=== PATIENT | female | born 1950 | race Caucasian/White ===

== ENCOUNTER → 2018-08-22 | Outpatient (CLI) | payer MEDICARE, OTHER ==
[~2018-08-22] MED LIST: ALLEGRA; ALLEGRA-D 12 H1 EAC1 PO; FLONASE; FLONASE 0.05%50 MCG NASAL; KEFLEX500 MG PO; PATADAY2.5 ML OP; REQUIP; REQUIP1 MG PO; [UNRECOGNIZED DRUG - OTHER]
== END ==
LOC: M.MRI 08-12 13:34
DX: S83.241A Other tear of medial meniscus, current injury, right knee, initial encounter (principal); M17.0 Bilateral primary osteoarthritis of knee; M25.462 Effusion, left knee; M25.461 Effusion, right knee; X58.XXXA Exposure to other specified factors, initial encounter; Y93.89 Activity, other specified; Y92.89 Other specified places as the place of occurrence of the external cause; Y99.8 Other external cause status; G89.29 Other chronic pain

== ENCOUNTER → 2019-03-20 | Outpatient (CLI) | payer MEDICARE, OTHER | LOC: M.RAD 11:03 | DX: Z12.31 Encounter for screening mammogram for malignant neoplasm of breast (principal) ==

== ENCOUNTER → 2019-04-17 | Outpatient (CLI) | payer MEDICARE, OTHER | LOC: M.RAD 14:30 | DX: M85.88 Other specified disorders of bone density and structure, other site (principal) ==

== ENCOUNTER → 2019-08-20 | Outpatient (CLI) | payer MEDICARE, OTHER ==
[~2019-08-20] MED LIST changes: +B COMPLEX1 EACH PO; +CALCIUM GUMMIES PO; +CHROMIUM PICO400 MCG PO; +COLLAGEN PO; +CVS LUTEIN 401 EACH PO; +DAILY MULTIPLE1 EACH PO; +FIBER WELL PO; +FISH OIL 1,4001 EACH PO; +FLONASE 0.05%50 MCG NARES; +HYALURONIC ACID PO; +KEFLEX500 M1 PO; +MAGNESIUM CITR125 MG PO; +METHYLSULFONYLMETHANE PO; +OMEGA 3 1,0001 EACH PO; +OMEGA PO; +POTASSIUM99 M1 PO; +PROBIOTIC1 EAC7 PO; +STRONTIUM PO; +TRIAMTERENE/HCTZ PO; +TURMERIC 500 M1 EACH PO; +VITAMIN D22000 UNIT PO; +VITAMIN E400 UNI2 PO; +VITAMINC500 PO; +[UNRECOGNIZED DRUG - OTHER] PO
== END ==
LOC: M.MRI 16:57
DX: S83.241A Other tear of medial meniscus, current injury, right knee, initial encounter (principal); S83.411A Sprain of medial collateral ligament of right knee, initial encounter; M25.861 Other specified joint disorders, right knee; M25.461 Effusion, right knee; X58.XXXA Exposure to other specified factors, initial encounter; Y93.89 Activity, other specified; Y92.89 Other specified places as the place of occurrence of the external cause; Y99.8 Other external cause status

== ENCOUNTER 2019-09-16 05:35 | Inpatient (IN) | payer MEDICARE, OTHER ==
[2019-09-04 09:14] LABS: HEMATOCRIT 41.7 % (37.0-47.0); HEMOGLOBIN 14.1 gm/dL (12.0-15.0); MCH 31.5 pg (26.0-34.0); MCHC 33.9 g/dL (28.0-37.0); MPV 8.7 fl. (7.2-11.1); RBC 4.48 mil/uL (4.20-5.00); RDW-CV 13.9 % (10.5-14.5); WBC 8.1 thou/uL (4.0-11.0)
[2019-09-04 09:25] LABS: URINE BILIRUBIN NEGATIVE (Negative); URINE BLOOD NEGATIVE (Negative); URINE CLARITY CLEAR; URINE COLOR YELLOW; URINE GLUCOSE-RANDOM NEGATIVE (Negative); URINE KETONES NEGATIVE (Negative); URINE LEUKOCYTES-REFLEX NEGATIVE (Negative); URINE NITRITE-REFLEX NEGATIVE (Negative); URINE PROTEIN NEGATIVE (Negative); URINE SPECIFIC GRAVITY 1.015 (1.005-1.030); URINE UROBILINOGEN 0.2 E.U./dl (0.2-1.0)
[2019-09-04 09:31] LABS: ALBUMIN 3.6 g/dL (3.4-5.0); CALCIUM 9.2 mg/dL (8.5-10.1); CREATININE 0.9 mg/dL (0.6-1.3); POTASSIUM 4.8 mmol/L (3.5-5.1); TOTAL BILIRUBIN 0.5 mg/dL (<0.1-1.0); TOTAL PROTEIN 6.7 g/dL (6.4-8.2)
--- NOTE | 2019-09-10 13:44 | EKG ---
[place] [address] ELECTROCARDIOGRAM REPORT Name: KARINA GILLIS Room: PRE IN [facility]#: [id number] Admission: Attend Phys: Hardeep Bahena Discharge: Date of : 48 Date of Service: 09/04/1943 Report #: [id number] THIS REPORT FOR: cc: Jeny Muhammad Linda J. DO Biggs, F. Douglas MD [facility] ~ THIS REPORT FOR: //name// [facility] Test Date: 2019-09-04 Test Time: 09:42:30 Pat Name: KARINA GILLIS Department: Room: Gender: F Donkey Doctor: : 1950 Requested By: Neo Pena Order Number: [id number] Noel MD: Derrek Joyner Measurements Intervals [place] Rate: 59 P: 71 AL: 155 QRS: 55 QRSD: 98 T: 60 QT: 452 QTc: 448 Interpretive Statements Sinus rhythm RSR' in V1 or V2, right VCD or RVH No previous ECG available for comparison Electronically Signed On 09-04-2019 14:33:06 [employer] by Derrek Joyner [email or web address] <ELECTRONICALLY SIGNED> By: Dionna Joyner MD, [facility] 09/04/19 1433 [id number] [id number] Dionna Joyner MD, [facility] /EPI
[~2019-09-16] VITALS: Ht 162.6 cm; Wt 59.0 kg
[~2019-09-16 05:35] MED LIST changes: +MELOXICAM7.5 MG PO; +REQUIP 1 MG TABL1 M1 PO
[2019-09-16 11:00] VITALS: BP 137/78
[2019-09-16 17:12] VITALS: BP 138/65
--- NOTE | 2019-09-16 17:25 | NUR ---
PT REMAINED ALERT AND ORIENTED. PT RESTING IN BED. PAIN MEDS GIVEN ORDERED. PT ORIENTED TO ROOM AND INSTRUCTED TO USE CALL LIGHT WHEN NEEDING ASSISTANCE. FALL RISK PRECAUTIONS IN PLACE. HOURLY ROUNDING COMPLETED. WILL CONTINUE TO MONITOR.
[2019-09-16 19:57] VITALS: BP 154/80
[2019-09-17] VITALS (9 sets, daily range): BP systolic 120–157; BP diastolic 72–82
--- NOTE | 2019-09-17 04:32 | NUR ---
PATIENT UP WITH WALKER WELL. USING POLAR PACK, SCD AND HEMOVAC STILL. REPORTS PAIN 6/10 ESPECIALLY AFTER AMBULATING. WBAT. SUNDAY IS POD#1. PLAN IS TO WORK WITH THERAPY AND MANAGEMENT OF PAIN. WILL CONTINUE TO FOLLOW PLAN OF CARE. ON - PA
[2019-09-17 04:40] LABS: HEMATOCRIT 36.6 % (37.0-47.0); HEMOGLOBIN 12.6 gm/dL (12.0-15.0)
[2019-09-17] MEDS ORDERED: PERCOCET 5-3251 EACH PO (09:47)
[2019-09-17] MEDS ORDERED: XARELTO10 M1 PO (09:48)
--- NOTE | 2019-09-17 11:00 | NUR ---
CALLED IN PRESCRIPTION FOR XARELTO, RYAN, FOR XARELTO TO [facility]. NURSING TO CALL BACK FOR COPAY AMOUNT.
--- NOTE | 2019-09-17 11:48 | NUR ---
cm completed initial assessment to discuss d/c planning. pt a&ox4. pt sitting up in chair and talkative. pt present. spouse states pt has "the best support." pt lives at home w/spouse. pt is usually active, independent w/cares and drives. pt would like alanna Decker to fax order.
--- NOTE | 2019-09-17 13:29 | NUR ---
RECIEVED O.T. EVAL AND TX ORDERS. WILL DEFER TO P.T. AT THIS TIME. PLEASE ORDER FURTHER O.T. SERVICES IF NEEDED.
--- NOTE | 2019-09-17 15:31 | NUR ---
FAXED REFERRAL TO [facility] [phone]. CONFIRMED WITH [facility] THAT THEY RECEIVED AND REVIEWING. DCP TO FOLLOW.
--- NOTE | 2019-09-17 16:03 | NUR ---
PT GIVEN DISCHARGE INFORMATION, CARE NOTES, AND PRESCRIPTIONS. IV REMOVED. PT LEFT WITH POLAR PACK AND CPM. FALL RISK PRECAUTIONS IN PLACE. HOURLY ROUNDING COMPLETED. PT LEFT VIA WHEELCHAIR WITH NURSING STAFF TO HOME WITH HOME HEALTH.
--- NOTE | 2019-09-17 16:17 | OP ---
[facility] [address] [place] [address] OPERATIVE REPORT Name: KARINA GILLIS Room: [address] M.R.#: [id number] Admission: 09/16/19 Attend Phys: Eulalio Coy Discharge: 09/17/19 Date of : 48 Report #: [id number] THIS REPORT FOR: //name// cc: Jeny Muhammad Linda J. DO THIS REPORT FOR: //name// CC: Jeny Bahena DATE OF SERVICE: 09/16/2019 PREOPERATIVE DIAGNOSIS: Right knee osteoarthritis. POSTOPERATIVE DIAGNOSIS: Right knee osteoarthritis. PROCEDURE: Right total knee arthroplasty. SURGEON: Neo Pena II, DO. SLEEP SCIENTIST: MANUELA Higgins. ANESTHESIA: General endotracheal. ESTIMATED BLOOD LOSS: 50 mL. ANTIBIOTICS: Ancef preoperatively. DRAINS: Hemovac. COMPLICATIONS: None. CONDITION OF THE PATIENT: Stable to recovery room. IMPLANTS: Listed in operative record and progress note. BRIEF HISTORY: The patient was seen in the preoperative area. Preoperative H and P was performed. Site was marked. Questions were answered. Risks and benefits were discussed with the patient in detail about surgery. The patient wished to proceed assuming all risks. DESCRIPTION OF PROCEDURE: The patient was taken to the operative suite and placed supine on the operating table and given appropriate anesthesia. A well-padded tourniquet was applied to upper thigh, which was inflated to 300 mmHg after gravity exsanguination. The operative knee was sterilely prepped and [facility] [address] [place] [address] OPERATIVE REPORT Name: KARINA GILLIS Room: [address] R.#: [id number] Admission: 09/16/19 Attend Phys: Eulalio Coy Discharge: 09/17/19 Date of : 48 Report #: [id number] draped. Surgery began by midline incision. This was carried down to the subcutaneous tissues. A medial parapatellar arthrotomy was performed and carried down to bone. Patella was then everted and excess soft tissues were removed from around the femur. Femoral cutting block was then applied, checked with a drop mayra for rotational alignment, pinned in appropriate position, and appropriate cuts were made. A 4-in-1 cutting block was then applied, checked for rotational alignment, pinned in appropriate position, and appropriate cuts were made. Tibia was exposed. Excess meniscus was removed. Retractor was placed on collateral ligaments. The tibial cutting block was then applied, pinned in appropriate position, checked with drop mayra for rotational alignment and slope, and appropriate cut was made. Tibial bone was removed. Tibial base plate was then applied, checked for rotational alignment with a drop mayra, and pinned in appropriate position. Femur was then applied and box cut was reamed. This was then trialed with appropriate spacer, which showed excellent fit and fill and excellent stability of knee throughout all range of motion. The patella was then reamed in appropriate fashion and sized to appropriate size. Three peg holes were drilled. It was then trialed and showed excellent flexion and extension and excellent tracking of the patella within the groove. These trials were removed. The tibia was punched in appropriate fashion. Bone ends were cleansed with Pulsavac irrigation and cement was mixed and applied to final implants. These were then malleted into the position and held the knee in extension and compressed to allow cement to cure. After it cured, excess was removed using a Butler and osteotome. Wound was then copiously irrigated and the final spacer was then malleted into position. Tourniquet was deflated. Hemostasis was obtained with electrocautery. Pain cocktail was injected. PRP gel sprayed throughout the internal aspects of the knee. Medium Hemovac drain was applied. Capsule was closed with #2 FiberWire and #1 Vicryl in [id number] fashion. Skin was closed with 2-0 Vicryl and running 3-0 Monocryl. Dermabond and sterile dressing applied. Abhishek wrap and PolarCare applied. The patient transported to recovery room in stable condition. Counts were correct throughout the procedure. <ELECTRONICALLY SIGNED> By: Neo Pena II, DO 09/17/191616 19 Neo Pena II, DO /nt
--- NOTE | 2019-09-18 08:51 | NUR ---
I have reviewed the documentation by STEVEN CHRISTIANSEN from to 09/17/19 and I concur with it. DEE DEE KNAPP
--- NOTE | 2019-09-18 09:42 | NUR ---
CONFIRMED WITH [facility] AT [facility] THAT THEY HAVE ACCEPTED PATIENT AND WILL CONTACT PATIENT TODAY TO SCHEDULE THERAPY. [phone]
== END 2019-09-17 16:04 | disposition home health service (06) | DRG 470 ==
LOC: M.PRE 05:35 → M.ORTHSURG 09:59 → M.TBA 09:59 → M.PRE 10:46 → M.ORTHSURG 16:06
PROVIDERS: Orthopaedic Surgery; ADMIT Internal Medicine
PROC: 0SRC0J9 Replacement of Right Knee Joint with Synthetic Substitute, Cemented, Open Approach (ICD-10-PCS; principal; 2019-09-16)
PROC: 3E0T3BZ Introduction of Anesthetic Agent into Peripheral Nerves and Plexi, Percutaneous Approach (ICD-10-PCS; 2019-09-16)
DX: M17.11 Unilateral primary osteoarthritis, right knee (principal); I10 Essential (primary) hypertension; E78.5 Hyperlipidemia, unspecified; G25.81 Restless legs syndrome; K21.9 Gastro-esophageal reflux disease without esophagitis; Z96.611 Presence of right artificial shoulder joint; Z90.710 Acquired absence of both cervix and uterus; Z90.49 Acquired absence of other specified parts of digestive tract; Z72.89 Other problems related to lifestyle; Z79.899 Other long term (current) drug therapy

== ENCOUNTER → 2021-05-09 | Outpatient (CLI) | payer MEDICARE, OTHER ==
[~2021-05-09] MED LIST changes: +PERCOCET 5-3251 EACH PO; +XARELTO10 M1 PO
== END ==
LOC: M.RAD 10:48
PROVIDERS: ATTEND Family Medicine
DX: Z12.31 Encounter for screening mammogram for malignant neoplasm of breast (principal); M85.88 Other specified disorders of bone density and structure, other site

== ENCOUNTER → 2021-08-18 | Outpatient (CLI) | payer MEDICARE, OTHER ==
[~2021-08-18] MED LIST changes: +MELATONIN5 M6 PO; +ZINC50 M1 PO; +[UNRECOGNIZED DRUG - OTHER] PO
== END ==
LOC: M.LAB 11:19
PROVIDERS: ATTEND Podiatrist Foot & Ankle Surgery
DX: U07.1 COVID-19 (principal)

== ENCOUNTER → 2021-09-02 | Day surgery (SDC) | payer MEDICARE, OTHER ==
[2021-09-02 06:54] LABS: HEMATOCRIT 31.2 % (37.0-47.0); HEMOGLOBIN 10.3 gm/dL (12.0-15.0); MCH 31.3 pg (26.0-34.0); MCV 94.9 fL (80.0-100.0); MPV 7.9 fl. (7.2-11.1); NUCLEATED RBCS 0 /100WBC; PLATELET COUNT* 326 thou/uL (150-400); RBC 3.29 mil/uL (4.20-5.00); RDW-CV 15.9 % (10.5-14.5); WBC 7.3 thou/uL (4.0-11.0)
[2021-09-02 07:03] LABS: CALCIUM 8.3 mg/dL (8.5-10.1); CREATININE 0.9 mg/dL (0.6-1.3)
[2021-09-02 08:17] LABS: ABSOLUTE EOSINOPHILS 0.1 thou/uL (0.0-0.7); ABSOLUTE NEUTROPHILS 3.2 thou/uL (1.6-8.1); ATYPICAL LYMPHS 2 %; HYPOCHROMASIA 1+; PLATELET ESTIMATE ADEQUATE
[2021-09-02 08:18] LABS: MICROCYTES Occasional
--- NOTE | 2021-09-02 09:45 | EKG ---
[place] [address] ELECTROCARDIOGRAM REPORT Name: KARINA GILLIS Room: [facility]#: [id number] Admission: 09/02/21 Attend Phys: Nirmala Gimenez Discharge: Date of : 48 Date of Service: 09/02/2108 Report #: [id number] THIS REPORT FOR: //name// [facility] Test Date: 2021-09-02 Test Time: 07:08:54 Pat Name: KARINA GILLIS Department: Room: Gender: Devops Engineer: Alexander ROMERO RN : 1950 Requested By: Nirmala Gimenez Order Number: [id number] Reading MD: Girish Canchola Measurements Intervals [place] Rate: 66 P: 44 LA: 153 QRS: 14 QRSD: 102 T: 33 QT: 416 QTc: 436 Interpretive Statements Sinus rhythm RSR' in V1 or V2, right VCD or RVH Baseline wander in lead(s) V6 Compared to ECG 09/04/2019 09:42:30 No significant changes Electronically Signed On 09-02-2021 9:45:03 [employer] by Girish Canchola [email or web address] <ELECTRONICALLY SIGNED> By: Girish Canchola MD, [facility] 09/02/21 0945 0708 0708 Girish Canchola MD, [facility] /EPI
== END | disposition home or self-care (01) ==
LOC: M.SUR 05-19 12:27
PROVIDERS: ATTEND Podiatrist Foot & Ankle Surgery
DX: M20.42 Other hammer toe(s) (acquired), left foot (principal); M21.612 Bunion of left foot; T84.84XA Pain due to internal orthopedic prosthetic devices, implants and grafts, initial encounter; M77.42 Metatarsalgia, left foot; Z79.899 Other long term (current) drug therapy; Z98.890 Other specified postprocedural states; Z96.611 Presence of right artificial shoulder joint; Z90.49 Acquired absence of other specified parts of digestive tract; Z90.710 Acquired absence of both cervix and uterus; Y83.8 Other surgical procedures as the cause of abnormal reaction of the patient, or of later complication, without mention of misadventure at the time of the procedure